=== PATIENT | male | born 1930 | race Caucasian/White ===

== ENCOUNTER 2016-08-21 11:03 | Inpatient (IN) | payer OTHER ==
[~2016-08-21] VITALS: Ht 180.3 cm; Wt 72.6 kg
[~2016-08-21 11:03] MED LIST: CLOP75TA2 PO; FLUD0.1T PO; FLUT1DIS3 IH; MIDO2.5T PO; TIOT18CA3 IH
--- NOTE | 2016-08-21 11:03 | NUR ---
PT HAS DAYAMI #20 IV ACCESS CUT OFF SAW SET UP OPERATOR
--- NOTE | 2016-08-21 11:03 | NUR ---
PT BIB RA 88 FROM HOME SYNCOPAL EPISODE SITTING ON CHAIR BP 65/42 HX HYPOTNSN. BLE EDEMA. BUE SKIN TEAR. GOWNED PT. PLACED ON MONITOR. VSS. AWAITING MD ORDER.
--- NOTE | 2016-08-21 11:29 | NUR ---
DR HAIRSTON AT BEDSIDE FOR EVAL
[2016-08-21 11:54] LABS: BASOPHILS % (AUTO) 0.7 % (0.0-2.0); EOSINOPHILS # (AUTO) 0.2 /CMM (0.0-0.7); EOSINOPHILS % (AUTO) 3.6 % (0.0-6.0); HEMATOCRIT 25 % (39-51); HEMOGLOBIN 7.7 g/dL (13.5-17.5); LYMPHOCYTES # (AUTO) 0.6 /CMM (0.8-4.8); LYMPHOCYTES % (AUTO) 11.1 % (20.0-44.0); MEAN CORPUSCULAR HEMOGLOBIN 21 PG (26.0-33.0); MEAN CORPUSCULAR HGB CONC 31 g/dl (31.0-36.0); MEAN CORPUSCULAR VOLUME 68 fL (80-96); MONOCYTES # (AUTO) 0.6 /CMM (0.1-1.30); MONOCYTES % (AUTO) 10.2 % (2.0-12.0); NEUTROPHILS # (AUTO) 4.4 /CMM (1.8-8.9); NEUTROPHILS % (AUTO) 74.4 % (43.0-81.0); PLATELET COUNT (AUTO) 306 /CMM (150-450); RDW COEFFICIENT OF VARIATION 16.1 (11.5-15.0); RED BLOOD CELL COUNT(AUTO) 3.62 MIL/uL (4.5-6.0); WHITE BLOOD COUNT (AUTO) 5.8 K/uL (4.3-11.0)
[2016-08-21] MEDS ORDERED: IV NS 0.9% 500 ML IV ONE (11:55)
[2016-08-21] MEDS ORDERED: IV SET PRIMARY PUMP SET 1 EA INFUS.SET MC ONE ×2 (11:55→15:12)
--- NOTE | 2016-08-21 11:57 | NUR ---
PT TAKEN TO CT VIA LINDA
[2016-08-21] MEDS ORDERED: IV NS 0.9% 500 ML BAG IV ONE (12:00)
[2016-08-21 12:09] LABS: ALANINE AMINOTRANSFERASE 16 U/L (12-78); ALBUMIN 2.8 g/dL (3.4-5.0); ALKALINE PHOSPHATASE 66 U/L (46-116); ASPARTATE AMINOTRANSFERASE 22 U/L (15-37); BILIRUBIN,DIRECT 0.1 mg/dL (0.0-0.2); BILIRUBIN,TOTAL 0.5 mg/dL (0.2-1.0); CALCIUM, SERUM 7.8 mg/dL (8.5-10.1); CARBON DIOXIDE 36 mmol/L (21-32); CHLORIDE 104 mmol/L (98-107); CREATININE 1.8 mg/dL (0.6-1.3); GLUCOSE 114 mg/dL (74-106); SODIUM SERUM 146 mmol/L (136-145); TOTAL PROTEIN, SERUM 5.6 g/dL (6.4-8.2); UREA NITROGEN, BLOOD 21 mg/dL (7-18)
[2016-08-21 12:11] LABS: TROPONIN I 0.036 ng/mL (0.00-0.056)
[2016-08-21 12:12] LABS: INR 1.25 (0.87-1.13); PROTHROMBIN TIME 13.1 SECS (9.5-12.7)
[2016-08-21] MEDS ORDERED: URSO300C12 PO (12:12)
[2016-08-21] MEDS ORDERED: LORA0.5T PO (12:12)
[2016-08-21] MEDS ORDERED: RASA1TAB PO (12:12)
[2016-08-21] MEDS ORDERED: DOCU-25 PO (12:12)
[2016-08-21] MEDS ORDERED: FURO40TA5 PO (12:12)
[2016-08-21] MEDS ORDERED: ZOLP5TAB7 PO (12:12)
[2016-08-21] MEDS ORDERED: PRAV10TA40 PO (12:12)
[2016-08-21] MEDS ORDERED: ALBU8.5H2 IH (12:12)
--- NOTE | 2016-08-21 12:16 | NUR ---
PT BACK FROM CT SCAN
[2016-08-21] MEDS ORDERED: POTASSIUM CHLORIDE 20 MEQ TAB.PRT.SR PO ONE ×4 (12:29→22:02)
--- NOTE | 2016-08-21 12:38 | NUR ---
DR.SHAO FRIEND
--- NOTE | 2016-08-21 12:40 | NUR ---
CALLED NURSING SUP. FOR TELE BED
--- NOTE | 2016-08-21 13:08 | NUR ---
RECEIVED CALL FROM 'S ANSWERING SERVICE, THEY SAID THAT HE IS NOT PILOT CAPTAIN AND TO GIVE IT TO THE EPIC GROUP.
--- NOTE | 2016-08-21 13:09 | NUR ---
CHITO NIELSEND, RHETT DOHERTY NP DECK MOLDER
--- NOTE | 2016-08-21 13:10 | NUR ---
PT GOING TO TELE 308-1
--- NOTE | 2016-08-21 13:15 | NUR ---
GAVE REPORT TO ALAINA OBRIENWHEAT INSPECTOR 308-1 ADMITTING DX SYNCOPE, HYPOKALEMIA, COPD. RHETT DOHERTY ADMITTING . TRANSFER VIA ACLS PROTOCOL
[2016-08-21] MEDS ORDERED: ACETAMINOPHEN 325 MG TABLET PO PRN (14:00)
[2016-08-21] MEDS ORDERED: MAGNESIUM HYDROXIDE 30 ML UDC PO PRN (14:00)
[2016-08-21] MEDS ORDERED: ONDANSETRON HCL/PF 4 MG/2 ML VIAL IVP PRN (14:00)
[2016-08-21] MEDS ORDERED: MAG HYDROX/AL HYDROX/SIMETH 30 ML UDC PO PRN (14:00)
[2016-08-21] MEDS ORDERED: Z GUARD REMEDY 2 OZ OINT TP PRN (14:00)
[2016-08-21 14:41] LABS: IRON, SERUM 14 ug/dl (50-175); TOTAL IRON BINDING CAPACITY 324 ug/dl (250-450)
[2016-08-21] MEDS ORDERED: IV NS 0.9% 250 ML IV ONE (15:12)
[2016-08-21] MEDS ORDERED: SECONDARY IV SET 1 EA INFUS.SET MC ONE ×2 (15:12→22:08)
[2016-08-21] MEDS: ALBUTEROL FS 2.5 MG/3 ML VIAL.NEB NEB PRN (15:15)
[2016-08-21] MEDS: POTASSIUM CL. PREMIX PERIPHER. 50 ML IV SCH ×2 (15:21→17:27)
[2016-08-21 15:32] LABS: B-TYPE NATRIURETIC PEPTIDE 6892 PG/ML (0-125)
--- NOTE | 2016-08-21 16:00 | NUR ---
PATIENT FELT SOB. RT NOTIFIED. BREATHING TREATMENT ADMINISTERED BY RT
[2016-08-21 16:40] LABS: FERRITIN 11 ng/mL (8-388)
--- NOTE | 2016-08-21 16:50 | NUR ---
RN ADMITTING NOTES RECEIVED REPORT FROM VICENTA OBRIEN. PATIENT CAME TO THE UNIT AT 1415. HIGH BLOOD PRESSURE NOTES, DR POE MADE AWARE AND NO NEW ORDERS RECEIVED. PATIENT AND PATIENT'S SON AGREED WITH DR POE NOT TO TREAT HIGH BLOOD PRESSURE FOR NOW. POTASSIUM SUPPLEMENT REPLACED WITH 2 BAGS OF IV AND 40 MEQ PO IN OUR UNIT IN ADDITION TO ER REPLACEMENT OF POTASSIUM. PICTURES WERE TAKEN AND PLACED IN THE CHART. WOUND CARE CONSULT ORDERED.
[2016-08-21] MEDS: FLUTICASONE/SALMETEROL DISKUS IH SCH (16:52)
[2016-08-21] MEDS: URSODIOL 300 MG CAPSULE PO SCH (16:52)
[2016-08-21] MEDS: DOCUSATE SODIUM 100 MG CAPSULE PO SCH (16:52)
[2016-08-21] MEDS: FLUDROCORTISONE 0.1 MG TABLET PO SCH (16:53)
[2016-08-21] MEDS ORDERED: POTASSIUM CHLORIDE 20 MEQ POWDER PACKET PO ONE (17:00)
[2016-08-21] MEDS ORDERED: LORAZEPAM 0.5 MG TABLET PO PRN (17:00)
--- NOTE | 2016-08-21 18:46 | NUR ---
RN CLOSING NOTES PATIENT IS IN BED, ALERT AND ORIENTED TO NAME, PLACE AND TIME. BED IN LOW POSITION, LOCKED AND 2 SIDE RAILS ARE UP. PATIENT KEPT CLEAN AND DRY. DRESSING CHANGED. ALL NEEDS ANTICIPATED. NO SIGNS AND SYMPTOMS OF DISTRESS. DENIED PAIN. WILL ENDORSE TO COUNTER DISH CARRIER NURSE.
--- NOTE | 2016-08-21 19:05 | NUR ---
DRY ROLLER OPENING NOTES: RECEIVED PT IN BED AWAKE A/O X3. PT IS ON 2LPM VIA NC AND IS TOLERATING WELL. PT IS ON TELE AND IS SR 60S. CALL LIGHT WITHIN PT'S REACH. BED KEPT IN LOCKED, LOWEST POSITION, AND SIDE RAILS X 2 UP. PT HAS IV ON DAYAMI 18G AND IS PATENT AND INTACT. PT IS CURRENTLY RECEIVING POTASSIUM AT 25ML/HR. NO SIGNS OR SYMPTOMS OF DISTRESS NOTED AT THIS TIME. WILL CONTINUE TO MONITOR PT.
[2016-08-21 20:00] VITALS: BP_SYST 188; BP_SYST 195; BP_DIAS 91; BP_DIAS 92
[2016-08-21] MEDS: IPRATROPIUM NEB FS 0.5 MG/2.5 ML AMPUL.NEB NEB SCH (20:07)
[2016-08-21 20:31] LABS: MAGNESIUM 1.4 mg/dL (1.8-2.4)
--- NOTE | 2016-08-21 20:45 | NUR ---
FRAME TABLE OPERATOR NOTES: BLOOD PRESSURE WAS CHECKED 195/89 HR 73. MANUALLY, IT WAS 192/90 HR 71. PT REPORTED NO PAIN. PT IS IN NO S/S OF DISTRESS. WILL CONTINUE TO MONITOR.
--- NOTE | 2016-08-21 21:06 | NUR ---
PATTERN HAND NOTES: PAGED DR. HOWELL IN REGARDS TO INCREASED BLOOD PRESSURE. AWAITING FOR CALL BACK.
[2016-08-21] MEDS: ATORVASTATIN 10 MG TABLET PO SCH (21:30)
--- NOTE | 2016-08-21 21:44 | NUR ---
AUTOMOBILE SALESMAN NOTES: PAGED DR. HOWELL. AWAITING FOR PHONE CALL.
--- NOTE | 2016-08-21 21:50 | NUR ---
ONLINE MERCHANDISING MANAGER NOTES: SPOKE WITH DR. HOWELL. HE WAS INFORMED OF BP 195/89 HR 73, K 3.0 , AND MAG 1.4 ; DR ORDERED CLONIDINE 0.1MG PRN Q6HR FOR SYSTOLIC >160, K-DUR PO 40MEQ X 1, AND MAG 2GM IV X 1.
[2016-08-21] MEDS ORDERED: ZOLPIDEM TARTRATE 5 MG TABLET PO PRN (22:00)
[2016-08-21] MEDS ORDERED: CLONIDINE HCL 0.1 MG TABLET ONE (22:02)
[2016-08-21] MEDS ORDERED: Magnesium 1GM/D5W 100ML PREMIX 200 ML IV ONE (22:03)
[2016-08-21] MEDS: CLONIDINE HCL 0.1 MG TABLET PO PRN (22:08)
--- NOTE | 2016-08-21 22:08 | NUR ---
BIAS CUTTER NOTES: ADMINISTERED CLONIDINE 0.1MG PO FOR BP 195/89 HR 73. ALSO ADMINISTERED K-DUR PO 40MEQ ONCE AND MAG 2GM IV ONCE PER DR. HOWELL. WILL CONTINUE TO MONITOR PT.
[2016-08-21] MEDS ORDERED: Magnesium 1GM/D5W 100ML PREMIX PIGGYBACK IV ONE (22:30)
[2016-08-22] VITALS: BP_SYST 166; BP_SYST 178; BP_DIAS 76; BP_DIAS 78
--- NOTE | 2016-08-22 | NUR ---
PUBLIC RECORDS OFFICER NOTES: BLOOD PRESSURE IS GOING DOWN: 166/76 HR 61 ; WILL CONTINUE TO MONITOR PT.
[2016-08-22] MEDS: IPRATROPIUM NEB FS 0.5 MG/2.5 ML AMPUL.NEB NEB SCH ×4 (01:15→19:10)
[2016-08-22 04:00] VITALS: BP 163/80
[2016-08-22 06:58] LABS: BASOPHILS % (AUTO) 0.1 % (0.0-2.0); EOSINOPHILS # (AUTO) 0.3 /CMM (0.0-0.7); EOSINOPHILS % (AUTO) 5.1 % (0.0-6.0); HEMATOCRIT 26 % (39-51); LYMPHOCYTES # (AUTO) 0.9 /CMM (0.8-4.8); LYMPHOCYTES % (AUTO) 13.1 % (20.0-44.0); MEAN CORPUSCULAR HEMOGLOBIN 22 PG (26.0-33.0); MEAN CORPUSCULAR HGB CONC 32 g/dl (31.0-36.0); MEAN CORPUSCULAR VOLUME 69 fL (80-96); MONOCYTES # (AUTO) 0.7 /CMM (0.1-1.30); MONOCYTES % (AUTO) 9.9 % (2.0-12.0); NEUTROPHILS # (AUTO) 4.7 /CMM (1.8-8.9); NEUTROPHILS % (AUTO) 71.8 % (43.0-81.0); PLATELET COUNT (AUTO) 269 /CMM (150-450); RDW COEFFICIENT OF VARIATION 16.8 (11.5-15.0); RED BLOOD CELL COUNT(AUTO) 3.72 MIL/uL (4.5-6.0); WHITE BLOOD COUNT (AUTO) 6.6 K/uL (4.3-11.0)
--- NOTE | 2016-08-22 07:05 | NUR ---
TELE CLOSING NOTES: ALL NEEDS WERE ATTENDED AND ANTICIPATED FOR. NO SIGNS OR SYMPTOMS OF DISTRESS NOTED AT THIS TIME. PT HAS IV ON L UPPER ARM 18G AND IS PATENT AND INTACT. PT IS ON HEP LOCK. TELE READING IS SR 70S. PT IS ON 2LPM VIA NC AND IS TOLERATING WELL. ENDORSED TO AM NURSE FOR BRAXTON.
[2016-08-22 07:23] VITALS: BP 170/90
--- NOTE | 2016-08-22 07:30 | NUR ---
TELE/RN NOTES PT. IS SLEEPING IN BED. NO SOB, PT. IS BREATHING ON OXYGEN AT 2L/MIN WITH NASAL CANNULA. BREATHING IS EVEN AND UNLABORED. NO S/S OF ACUTE DISTRESS. PT. IS ON TELE MONITOR WITH SINUS RHYTHM AT 86 BPM. IV ACCESS ON THE LEFT ANTECUBITAL SITE GAUGE 18. BED IS IN LOW POSITION, 2 SIDE RAILS UP, AND CALL LIGHT WITHIN REACH. INSTRUCTED PT. TO USE CALL LIGHT FOR ASSISTANCE.
[2016-08-22 07:52] LABS: CHOLESTEROL 106 mg/dL (<200); HDL CHOLESTEROL 47 mg/dL (40-60); LDL 41 mg/dL (0-99); TRIGLYCERIDES 26 mg/dL (30-150)
[2016-08-22 08:04] LABS: EOSINOPHILS % (MANUAL) 1 % (0-4); LYMPHOCYTES % (MANUAL) 14 % (16-48); MONOCYTES % (MANUAL) 8 % (0-11.0); NEUTROPHILS % (MANUAL) 77 (42-76)
[2016-08-22 08:07] LABS: ALANINE AMINOTRANSFERASE 17 U/L (12-78); ALBUMIN 2.5 g/dL (3.4-5.0); ALKALINE PHOSPHATASE 66 U/L (46-116); ASPARTATE AMINOTRANSFERASE 24 U/L (15-37); BILIRUBIN,TOTAL 0.4 mg/dL (0.2-1.0); CALCIUM, SERUM 7.8 mg/dL (8.5-10.1); CARBON DIOXIDE 37 mmol/L (21-32); CHLORIDE 103 mmol/L (98-107); CREATININE 1.3 mg/dL (0.6-1.3); GLUCOSE 93 mg/dL (74-106); MAGNESIUM 1.8 mg/dL (1.8-2.4); PHOSPHORUS 3.4 mg/dL (2.5-4.9); SODIUM SERUM 144 mmol/L (136-145); TOTAL PROTEIN, SERUM 5.2 g/dL (6.4-8.2); UREA NITROGEN, BLOOD 18 mg/dL (7-18)
[2016-08-22 08:40] LABS: POTASSIUM 2.5 mmol/L (3.5-5.1)
[2016-08-22] MEDS ORDERED: FUROSEMIDE 40 MG TABLET PO SCH (09:00)
[2016-08-22] MEDS ORDERED: POTASSIUM CL. PREMIX PERIPHER. 50 ML IV SCH (09:30)
[2016-08-22] MEDS ORDERED: SECONDARY IV SET 1 EA INFUS.SET MC ONE (11:50)
[2016-08-22] MEDS: PANTOPRAZOLE 40 MG TABLET.DR PO SCH (11:56)
[2016-08-22] MEDS: FUROSEMIDE 40 MG TABLET PO SCH (11:56)
[2016-08-22] MEDS: FLUDROCORTISONE 0.1 MG TABLET PO SCH ×2 (11:56→18:03)
[2016-08-22] MEDS: DOCUSATE SODIUM 100 MG CAPSULE PO SCH ×2 (11:56→18:02)
[2016-08-22] MEDS: URSODIOL 300 MG CAPSULE PO SCH ×2 (11:56→18:03)
[2016-08-22] MEDS: FLUTICASONE/SALMETEROL DISKUS IH SCH ×2 (11:57→18:03)
[2016-08-22] MEDS: CLOPIDOGREL BISULFATE 75 MG TABLET PO SCH (11:57)
[2016-08-22] MEDS: CLONIDINE HCL 0.1 MG TABLET PO PRN ×2 (11:58→20:21)
[2016-08-22 12:00] VITALS: BP 174/79
[2016-08-22] MEDS: POTASSIUM CHLORIDE 20 MEQ TAB.PRT.SR PO SCH ×3 (12:46→15:38)
[2016-08-22 16:00] VITALS: BP 148/80
[2016-08-22 17:08] LABS: APPEARANCE,URINE CLEAR (CLEAR); BILIRUBIN,URINE NEGATIVE (NEGATIVE); BLOOD, URINE NEGATIVE Ery/uL (NEGATIVE); COLOR,URINE YELLOW (YELLOW); KETONES,URINE NEGATIVE (NEGATIVE); LEUKOCYTE ESTERASE ,URINE NEGATIVE (NEGATIVE); NITRITE, URINE NEGATIVE (NEGATIVE); PROTEIN,URINE 2+ mg/dl (NEGATIVE); UGLUCOSE NEGATIVE (NEGATIVE)
[2016-08-22 17:16] LABS: BACTERIA,URINE None seen /HPF (None Seen); RBC,URINE NONE SEEN /HPF (0-2); SQUAMOUS EPITHELIAL CELL,UR Rare /HPF (None Seen); WBC,URINE 0-2 /HPF (0-3)
[2016-08-22] MEDS: FERROUS SULFATE (325 MG) 325 MG/TAB TABLET PO SCH (18:03)
--- NOTE | 2016-08-22 19:30 | NUR ---
MACHINIST MATE OPENING NOTES: RECEIVED PT IN BED WITH FAMILY MEMBERS AT BEDSIDE. PT IS AWAKE, A/O X4. PT IS ON 2LPM VIA NC AND IS TOLERATING WELL. PT IS ON TELE AND IS SR 70S. CALL LIGHT WITHIN PT'S REACH. BED KEPT IN LOCKED, LOWEST POSITION, AND SIDE RAILS X 2 UP. PT KEPT COMFORTABLE. PT HAS L UPPER ARM #18G AND IS PATENT AND INTACT. WILL CONTINUE TO MONITOR PT.
--- NOTE | 2016-08-22 19:56 | NUR ---
TELE/RN CLOSING NOTES PT. IS IN BED AWAKE, A&OX3. NO SOB, BREATHING EVENLY AND UNLABORED ON OXYGEN AT 2L/MIN WEARING NASAL CANNULA. NO S/S OF ACUTE DISTRESS. PT IS ON TELE MONITOR READING SINUS RHYTHM IN THE 70'S BPM. BED IS IN LOW POSITION, 2 SIDE RAILS UP, CALL LIGHT WITHIN REACH, AND INSTRUCTED PT. TO USE A CALL LIGHT FOR ASSISTANCE.
[2016-08-22 20:00] VITALS: BP 192/99
--- NOTE | 2016-08-22 20:21 | NUR ---
GALVANIZING POT RUNNER NOTES: CATAPRES WAS GIVEN PO D/T BP 192/99 HR 66 . PT REPORTS NO PAIN. WILL CONTINUE TO MONITOR PT.
[2016-08-22] MEDS: ATORVASTATIN 10 MG TABLET PO SCH (21:02)
[2016-08-23] VITALS: BP 175/77
[2016-08-23] MEDS: IPRATROPIUM NEB FS 0.5 MG/2.5 ML AMPUL.NEB NEB SCH ×4 (01:07→20:09)
[2016-08-23 04:00] VITALS: BP 189/93
[2016-08-23 06:34] LABS: CALCIUM, SERUM 7.8 mg/dL (8.5-10.1); CARBON DIOXIDE 36 mmol/L (21-32); CHLORIDE 105 mmol/L (98-107); CREATININE 1.4 mg/dL (0.6-1.3); GLUCOSE 94 mg/dL (74-106); MAGNESIUM 1.8 mg/dL (1.8-2.4); SODIUM SERUM 145 mmol/L (136-145); UREA NITROGEN, BLOOD 20 mg/dL (7-18)
[2016-08-23 06:41] LABS: BASOPHILS % (AUTO) 0.3 % (0.0-2.0); EOSINOPHILS # (AUTO) 0.5 /CMM (0.0-0.7); EOSINOPHILS % (AUTO) 6.1 % (0.0-6.0); HEMATOCRIT 27 % (39-51); HEMOGLOBIN 8.5 g/dL (13.5-17.5); LYMPHOCYTES # (AUTO) 0.7 /CMM (0.8-4.8); LYMPHOCYTES % (AUTO) 8.9 % (20.0-44.0); MEAN CORPUSCULAR HEMOGLOBIN 22 PG (26.0-33.0); MEAN CORPUSCULAR HGB CONC 32 g/dl (31.0-36.0); MEAN CORPUSCULAR VOLUME 69 fL (80-96); MONOCYTES # (AUTO) 0.7 /CMM (0.1-1.30); MONOCYTES % (AUTO) 9.5 % (2.0-12.0); NEUTROPHILS # (AUTO) 5.9 /CMM (1.8-8.9); NEUTROPHILS % (AUTO) 75.2 % (43.0-81.0); PLATELET COUNT (AUTO) 281 /CMM (150-450); RDW COEFFICIENT OF VARIATION 16.9 (11.5-15.0); RED BLOOD CELL COUNT(AUTO) 3.88 MIL/uL (4.5-6.0); WHITE BLOOD COUNT (AUTO) 7.9 K/uL (4.3-11.0)
[2016-08-23 06:55] VITALS: BP 167/87
[2016-08-23 07:10] LABS: POTASSIUM 2.5 mmol/L (3.5-5.1)
--- NOTE | 2016-08-23 07:15 | NUR ---
TELE CLOSING NOTES: ALL NEEDS WERE ATTENDED AND ANTICIPATED FOR. NO SIGNS OR SYMPTOMS OF DISTRESS NOTED AT THIS TIME. PT IS ASLEEP IN BED. PT HAS IV ON L UPPER ARM 18G AND IS PATENT AND INTACT. PT IS ON HEP LOCK. TELE READING IS SR 60S-70S. PT IS ON 2LPM VIA NC AND IS TOLERATING WELL. RECEIVED PHONE CALL ABOUT CRITICAL VALUE FOR LOW POTASSIUM. ENDORSED TO AM NURSE FOR BRAXTON.
--- NOTE | 2016-08-23 07:49 | NUR ---
TELE/NOTES OPENING NOTES PT. IS IN BED SLEEPING. NO SOB, BREATHING UNLABORED AND EVENLY ON OXYGEN AT 2L/MIN. NO S/S OF ACUTE DISTRESS. PT. IS ON TELE MONITOR READING SINUS RHYTHM IN THE 60'S . BED IS IN LOW POSITION, 2 SIDE RAILS UP, CALL LIGHT WITHIN REACH. PER STATE HISTORICAL SOCIETY DIRECTOR NURSE PT.'S HAS CRITICAL LAB VALUE, POTASSIUM 2.5, WILL NOTIFY
--- NOTE | 2016-08-23 07:52 | NUR ---
TELE/RN NOTES CALLED [facility] TO NOTIFY RHETT DOHERTY NP ABOUT PT.'S CRITICAL LAB VALUE POTASSIUM 2.5. TILE MACHINE OPERATOR IS AWARE, AND ASKED TO TALK TO PT. ABOUT RECEIVING POTASSIUM IV.
[2016-08-23] MEDS: ALBUTEROL FS 2.5 MG/3 ML VIAL.NEB NEB PRN ×2 (07:53→13:18)
[2016-08-23] MEDS: FLUDROCORTISONE 0.1 MG TABLET PO SCH ×2 (08:54→18:07)
[2016-08-23] MEDS: DOCUSATE SODIUM 100 MG CAPSULE PO SCH ×2 (08:54→18:07)
[2016-08-23] MEDS: FERROUS SULFATE (325 MG) 325 MG/TAB TABLET PO SCH ×2 (08:54→18:07)
[2016-08-23] MEDS: CLOPIDOGREL BISULFATE 75 MG TABLET PO SCH (08:54)
--- NOTE | 2016-08-23 08:59 | NUR ---
MS/RN NOTES PT. WAS DISCHARGED FROM TELE MONITOR PER MD ORDER.
[2016-08-23] MEDS: FLUTICASONE/SALMETEROL DISKUS IH SCH ×2 (09:00→18:06)
[2016-08-23] MEDS: CLONIDINE HCL 0.1 MG TABLET PO PRN ×3 (09:05→16:09)
[2016-08-23] MEDS: PANTOPRAZOLE 40 MG TABLET.DR PO SCH (09:08)
[2016-08-23] MEDS: URSODIOL 300 MG CAPSULE PO SCH ×2 (09:21→18:07)
[2016-08-23] MEDS: FUROSEMIDE 40 MG TABLET PO SCH (09:22)
--- NOTE | 2016-08-23 09:33 | NUR ---
WOUND CARE CONSULT: PT PRESENT WITH ABRASION TO LEFT LOWER BACK AND RT ARM SKIN TEARS, PRESENT ON ADMISSION. PT ABLE TO ASSIST WITH TURNING AND REPOSITIONING IN BED. PT IS CONTINENT. ALL SKIN AND WOUND RECOMMENDATIONS DISCUSSED WITH NURSING STAFF. WILL SEE PRN. BECKWITH IN AGREEMENT WITH PLAN OF CARE. Addendum: 08/23/16 at 0934 by MARITZA BENDER WNDNU Amended: Links added.
[2016-08-23 09:47] LABS: BAND % (MANUAL) 2 % (0.0-5.0); EOSINOPHILS % (MANUAL) 9 % (0-4); LYMPHOCYTES % (MANUAL) 7 % (16-48); MONOCYTES % (MANUAL) 7 % (0-11.0); NEUTROPHILS % (MANUAL) 75 (42-76)
--- NOTE | 2016-08-23 11:00 | NUR ---
MS/RN NOTES RIGHT ARM DRESSING WAS CHANGED, WOUNDS CLEANSED WITH NORMAL SALINE, FLEXI FOAM DRESSING APPLIED TO SKIN WOUNDS, NO BLEEDING NOTES, AND REINFORCED DRESSING WITH KRELIX DRESSING. PT. HAS SKIN REDNESS FROM SCRATCH APPLIED MEPILEX TO BACK PER [facility] WOUND CARE NURSE RECOMMENDATIONS.
[2016-08-23] MEDS ORDERED: POTASSIUM CL. PREMIX PERIPHER. 50 ML IV SCH (13:00)
[2016-08-23] MEDS ORDERED: POTASSIUM CHLORIDE 20 MEQ POWDER PACKET PO ONE (13:00)
[2016-08-23] MEDS ORDERED: Magnesium 1GM/D5W 100ML PREMIX 100 ML IV SCH (13:00)
[2016-08-23] MEDS ORDERED: IV SET PRIMARY PUMP SET 1 EA INFUS.SET MC ONE ×2 (14:05→14:30)
[2016-08-23] MEDS ORDERED: SECONDARY IV SET 1 EA INFUS.SET MC ONE ×3 (14:05→19:14)
[2016-08-23] MEDS ORDERED: IV NS 0.9% 250 ML IV ONE ×2 (14:31→20:40)
[2016-08-23 16:00] VITALS: BP 165/86
--- NOTE | 2016-08-23 19:30 | NUR ---
MS/ RN NOTES PT. IS IN BED A&OX3. NO SOB, BREATHING ON OXYGEN 2L/MIN. NO S/S OF ACUTE DISTRESS. HAS IV FLUIDS RUNNING AT 100 ML/HR. PT. HAS WALKER NEAR BEDSIDE TO USE FOR AMBULATION. PT. IS CONTINENT AND USES A URINAL OCCASIONALLY. BED IS IN LOW POSITION, 2 SIDE RAILS UP, CALL LIGHT WITHIN REACH, AND ALL NEEDS MET. WILL ENDORSE REPORT TO MIGHT SHIFT NURSE.
[2016-08-23 20:00] VITALS: BP 178/86
--- NOTE | 2016-08-23 20:00 | NUR ---
MS KAMERON INITIAL NOTES GOT REPORT FROM AM NURSE EDDIE AFTER SEEN THE PT IN HIS ROOM , HE'S AWAKE AND ALERT USING THE TELEPHONE WITH MAGNESIUM STILL INFUSING ON HIS UPPER LEFT ARM. NO REDNESS NOTED. PT DENIES ANY PAIN OR ANY DISCOMFORT, NO SOB NOTED AT THIS TIME. PER REPORT PT RIGHT ARM WITH SKIN TEAR COVERED WITH DRESSING DRY AND INTACT . EDEMA NOTED ON BLE . KEPT HIM WARM AND COMFORTABLE AT ALL TIMES. ENCOURAGED PT TO CALL USING HIS CALL LIGHT IF HE NEED SOME HELPED OR ASSISTANCE. WILL CONTINUE TO MONITOR. PLACE CALL LIGHT AT REACH.
[2016-08-23] MEDS: Potassium Chloride 10 MEQ, LIDOCAINE HCL/PF 1% 1 ML in IV D5W 50 ML IV SCH ×3 (20:58→23:11)
[2016-08-23] MEDS: ATORVASTATIN 10 MG TABLET PO SCH (22:15)
[2016-08-24] VITALS: BP 154/82
[2016-08-24] MEDS: Potassium Chloride 10 MEQ, LIDOCAINE HCL/PF 1% 1 ML in IV D5W 50 ML IV SCH (00:15)
--- NOTE | 2016-08-24 01:09 | NUR ---
TECHNICAL TRANSLATOR/NOTES PT REMAIN SLEEPING . ALL POTASSIUM IVP BAG GIVEN ORDERED. NO ADVERSE REACTION NOTED. WILL CONTINUE TO MONITOR. PLACE CALL LIGHT AT REACH.
[2016-08-24] MEDS: IPRATROPIUM NEB FS 0.5 MG/2.5 ML AMPUL.NEB NEB SCH ×3 (01:30→13:48)
[2016-08-24 07:00] LABS: BASOPHILS % (AUTO) 0.1 % (0.0-2.0); EOSINOPHILS # (AUTO) 0.6 /CMM (0.0-0.7); EOSINOPHILS % (AUTO) 6.9 % (0.0-6.0); HEMATOCRIT 28 % (39-51); HEMOGLOBIN 8.9 g/dL (13.5-17.5); LYMPHOCYTES # (AUTO) 0.9 /CMM (0.8-4.8); LYMPHOCYTES % (AUTO) 10.3 % (20.0-44.0); MEAN CORPUSCULAR HEMOGLOBIN 22 PG (26.0-33.0); MEAN CORPUSCULAR HGB CONC 32 g/dl (31.0-36.0); MEAN CORPUSCULAR VOLUME 69 fL (80-96); MONOCYTES # (AUTO) 0.7 /CMM (0.1-1.30); MONOCYTES % (AUTO) 7.8 % (2.0-12.0); NEUTROPHILS # (AUTO) 6.4 /CMM (1.8-8.9); NEUTROPHILS % (AUTO) 74.9 % (43.0-81.0); PLATELET COUNT (AUTO) 290 /CMM (150-450); RDW COEFFICIENT OF VARIATION 16.8 (11.5-15.0); RED BLOOD CELL COUNT(AUTO) 4.12 MIL/uL (4.5-6.0); WHITE BLOOD COUNT (AUTO) 8.5 K/uL (4.3-11.0)
[2016-08-24 07:22] LABS: CARBON DIOXIDE 34 mmol/L (21-32); CHLORIDE 105 mmol/L (98-107); CREATININE 1.2 mg/dL (0.6-1.3); GLUCOSE 95 mg/dL (74-106); POTASSIUM 2.9 mmol/L (3.5-5.1); SODIUM SERUM 144 mmol/L (136-145); UREA NITROGEN, BLOOD 21 mg/dL (7-18)
--- NOTE | 2016-08-24 07:30 | NUR ---
RECEIVED PT. IN AM ALERT AND ORIENTED X2-3.VS STABLE.
[2016-08-24] MEDS: ALBUTEROL FS 2.5 MG/3 ML VIAL.NEB NEB PRN ×2 (07:55→13:48)
[2016-08-24 08:00] VITALS: BP 188/88
--- NOTE | 2016-08-24 08:06 | NUR ---
MS DISHROOM ATTENDANT CLOSING NOTES PT RESTING AT THIS TIME , NO SIGNS OF ANY DISCOMFORT NOTED, ALL DUE MEDS MET. AND STABLE GEMINI THE NIGHT. HEPLOCK AT THIS TIME. KEPT HIM WARM AND COMFORTABLE AT ALL TIMES. PLACE CALL LIGHT AT REACH.
[2016-08-24 08:26] LABS: EOSINOPHILS % (MANUAL) 6 % (0-4); LYMPHOCYTES % (MANUAL) 7 % (16-48); MONOCYTES % (MANUAL) 8 % (0-11.0); NEUTROPHILS % (MANUAL) 79 (42-76)
[2016-08-24] MEDS: FLUDROCORTISONE 0.1 MG TABLET PO SCH (09:25)
[2016-08-24] MEDS: PANTOPRAZOLE 40 MG TABLET.DR PO SCH (09:26)
[2016-08-24] MEDS: CLOPIDOGREL BISULFATE 75 MG TABLET PO SCH (09:26)
[2016-08-24] MEDS: CLONIDINE HCL 0.1 MG TABLET PO PRN (09:26)
[2016-08-24] MEDS: DOCUSATE SODIUM 100 MG CAPSULE PO SCH (09:26)
[2016-08-24] MEDS: FERROUS SULFATE (325 MG) 325 MG/TAB TABLET PO SCH (09:26)
[2016-08-24] MEDS: URSODIOL 300 MG CAPSULE PO SCH (09:26)
[2016-08-24] MEDS: FLUTICASONE/SALMETEROL DISKUS IH SCH (09:27)
--- NOTE | 2016-08-24 12:00 | NUR ---
KDUR GIVEN FOR CONTINUED LOW POTASSIUM.
[2016-08-24] MEDS: POTASSIUM CHLORIDE 20 MEQ TAB.PRT.SR PO SCH ×3 (12:27→15:00)
[2016-08-24 15:00] VITALS: BP 134/67
--- NOTE | 2016-08-24 15:45 | NUR ---
SON HERE FOR DC,GIVEN ALL PAPERWORK ALONG WITH BELONGINGS.HEP LOCK OUT.TAKEN TO LOBBY VIA W/C FOR DISCHARGE.
--- NOTE | 2016-08-24 15:46 | NUR ---
PHOTOS DONE OF DYANA. ARMS,REFUSED PHOTO OF BACK PT. ALREADY DRESSED.RT. ARM SKIN TEARS REDRESSED WITH IODOFORM AND KERLIX.
== END 2016-08-24 15:45 | disposition home or self-care (01) | DRG 291 ==
LOC: ER 11:05 → TELE 13:35 → MED 08-23 09:00
PROVIDERS: ADMIT Nurse Practitioner Acute Care; ATTEND Nurse Practitioner Acute Care
DX: I13.0 Hypertensive heart and chronic kidney disease with heart failure and stage 1 through stage 4 chronic kidney disease, or unspecified chronic kidney disease (principal); I50.33 Acute on chronic diastolic (congestive) heart failure; N17.0 Acute kidney failure with tubular necrosis; E44.0 Moderate protein-calorie malnutrition; I95.1 Orthostatic hypotension; N18.9 Chronic kidney disease, unspecified; J44.9 Chronic obstructive pulmonary disease, unspecified; D50.9 Iron deficiency anemia, unspecified; G47.00 Insomnia, unspecified; Z86.73 Personal history of transient ischemic attack (TIA), and cerebral infarction without residual deficits; E87.6 Hypokalemia; E88.09 Other disorders of plasma-protein metabolism, not elsewhere classified; Z68.22 Body mass index [BMI] 22.0-22.9, adult; Z87.891 Personal history of nicotine dependence
CPT/HCPCS: 36415; 70450-TC; 71010-TC; 80048-TC; 80051-TC; 80053-TC; 80061-TC; 80076-TC; 81000-TC; 82728-TC; 82962-TC; 83540-TC; 83735-TC; 83880; 84100-TC; 84132-TC; 84443-TC; 84484-TC; 85025-TC; 85027-TC; 85730-TC; 86850-TC; 87081-TC; 87086-TC; 93307-TC; 94799-TC; 97001-TC; A4606; A6253; A6402; A6403; J3475; J3480; J3490; J7040; J7050; J7060; Z7610

== ENCOUNTER 2017-09-12 16:39 | Inpatient (IN) | payer MEDICARE, OTHER ==
[~2017-09-12] VITALS: Ht 172.7 cm; Wt 68.0 kg
[~2017-09-12 16:39] MED LIST changes: +ALBU8.5H8 IH; +CLOP75TA15 PO; -CLOP75TA2 PO; +DOCU-141 PO; +LORA0.5T PO; -MIDO2.5T PO; +PRAV10TA40 PO; +RASA1TAB PO; +URSO300C12 PO; +ZOLP5TAB8 PO
--- NOTE | 2017-09-12 16:40 | NUR ---
BB FAMILY MEMBERS FOR NEAR SYNCOPE. NOT ACTING RIGHT/CONFUSED. LAST TIME SEEN NORMAL 3 HRS AGO. ACCDG TO THE SON, THE LAST TIME HE WAS ACTING LIKE THIS WAS WHEN HE HAD TIA. GOWNED AND PLACED ON CONT CARDIAC AND POX MONITORING. ALL NEEDS ARE ATTENDED, KEPT COMFORTABLE. WILL CONT TO MONITOR
--- NOTE | 2017-09-12 16:55 | NUR ---
DR. NARVAEZ AT BEDSIDE FOR EVALUATION.
[2017-09-12 17:23] LABS: BASOPHILS # (AUTO) 0.2 /CMM (0.0-0.2); BASOPHILS % (AUTO) 2.6 % (0.0-2.0); EOSINOPHILS % (AUTO) 3.9 % (0.0-6.0); HEMATOCRIT 38 % (39-51); HEMOGLOBIN 13.1 g/dL (13.5-17.5); LYMPHOCYTES # (AUTO) 1.1 /CMM (0.8-4.8); LYMPHOCYTES % (AUTO) 11.8 % (20.0-44.0); MEAN CORPUSCULAR HEMOGLOBIN 29 PG (26.0-33.0); MEAN CORPUSCULAR HGB CONC 34 g/dl (31.0-36.0); MEAN CORPUSCULAR VOLUME 86 fL (80-96); MONOCYTES # (AUTO) 0.5 /CMM (0.1-1.30); MONOCYTES % (AUTO) 5.3 % (2.0-12.0); NEUTROPHILS # (AUTO) 6.9 /CMM (1.8-8.9); NEUTROPHILS % (AUTO) 76.4 % (43.0-81.0); PLATELET COUNT (AUTO) 230 /CMM (150-450); RDW COEFFICIENT OF VARIATION 13.8 (11.5-15.0); RED BLOOD CELL COUNT(AUTO) 4.47 MIL/uL (4.5-6.0); WHITE BLOOD COUNT (AUTO) 9.1 K/uL (4.3-11.0)
[2017-09-12] MEDS ORDERED: IV NS 0.9% 500 ML BAG IV ONE (17:30)
[2017-09-12 17:34] LABS: CALCIUM, SERUM 8.7 mg/dL (8.5-10.1); CARBON DIOXIDE 28 mmol/L (21-32); CHLORIDE 103 mmol/L (98-107); CREATININE 1.6 mg/dL (0.6-1.3); GLUCOSE 133 mg/dL (74-106); SODIUM SERUM 135 mmol/L (136-145); UREA NITROGEN, BLOOD 26 mg/dL (7-18)
[2017-09-12 17:37] LABS: INR 1.04 (0.85-1.15)
[2017-09-12 17:39] LABS: ALANINE AMINOTRANSFERASE 27 U/L (12-78); ALBUMIN 3.5 g/dL (3.4-5.0); ALKALINE PHOSPHATASE 80 U/L (46-116); ASPARTATE AMINOTRANSFERASE 22 U/L (15-37); BILIRUBIN,DIRECT 0.1 mg/dL (0.0-0.2); BILIRUBIN,TOTAL 0.5 mg/dL (0.2-1.0); TOTAL PROTEIN, SERUM 6.9 g/dL (6.4-8.2)
[2017-09-12 17:42] LABS: TROPONIN I < 0.017 ng/mL (0.00-0.056)
[2017-09-12] MEDS ORDERED: POTASSIUM CHLORIDE 20 MEQ TAB.PRT.SR PO ONE ×2 (18:00→18:33)
[2017-09-12] MEDS ORDERED: Magnesium 1GM/D5W 100ML PREMIX 200 ML IV ONE (18:34)
[2017-09-12 18:58] LABS: APPEARANCE,URINE Clear (CLEAR); BILIRUBIN,URINE Negative (NEGATIVE); BLOOD, URINE Negative Ery/uL (NEGATIVE); COLOR,URINE Yellow (YELLOW); KETONES,URINE Negative (NEGATIVE); LEUKOCYTE ESTERASE ,URINE Negative (NEGATIVE); NITRITE, URINE Negative (NEGATIVE); PH,URINE 7.5 (5.0-8.0); PROTEIN,URINE 30 mg/dl (NEGATIVE); UGLUCOSE Negative (NEGATIVE); UROBILINOGEN,URINE 0.2 EU/dL (0.2)
[2017-09-12] MEDS: Magnesium 1GM/D5W 100ML PREMIX 100 ML IV SCH ×2 (18:58→20:00)
[2017-09-12] MEDS ORDERED: FURO40TA5 PO (19:07)
[2017-09-12] MEDS ORDERED: MAGN400T6 PO (19:07)
[2017-09-12] MEDS ORDERED: PRAV40TA3 PO (19:07)
[2017-09-12] MEDS ORDERED: POTA20TA83 PO (19:07)
--- NOTE | 2017-09-12 19:10 | NUR ---
DR NARVAEZ MADE AWARE OF BLOOD PRESSURE. NO NEW ORDERS AT THIS TIME.
[2017-09-12 19:27] LABS: BACTERIA,URINE Rare /HPF (None Seen); MUCUS,URINE Few /LPF (None Seen); RBC,URINE 0-2 /HPF (0-2); SQUAMOUS EPITHELIAL CELL,UR Rare /HPF (None Seen); URINE AMORPHOUS URATE Few /HPF (None Seen); WBC,URINE 0-2 /HPF (0-3)
--- NOTE | 2017-09-12 21:00 | NUR ---
MAGNISIUM 2GM ADMINISTERED. SON 20G. END TIME 2099.
--- NOTE | 2017-09-12 21:50 | NUR ---
RECEIVED CALL FROM AIYANA WITH [facility], SHE SAID SHE IS GOING TO TRY TO TRANSFER PT TO [facility], [facility], OR [facility] AND TO FAX HER FACESHEET AND CLINICALS TO [phone]
--- NOTE | 2017-09-12 23:06 | NUR ---
AIYANA VOLLEYBALL ASSEMBLER REGAL [phone]
--- NOTE | 2017-09-12 23:16 | NUR ---
SPOKE TO AIYANA/CONCRETE ENGINEER AND STATES "WE WAITING FOR DR. LOPEZ TO CALL YOUR ER DOCTOR AND AWAITING A TELE BED [facility] [place] [facility]".
--- NOTE | 2017-09-12 23:56 | NUR ---
REPORT TO CHARGE NURSE ECHEVARRIA FOR BRAXTON.
[2017-09-13] VITALS (7 sets, daily range): BP systolic 78–209; BP diastolic 32–96
--- NOTE | 2017-09-13 00:16 | NUR ---
DR. BENITEZ AT BEDSIDE.
--- NOTE | 2017-09-13 00:24 | NUR ---
AUTH NUMBER RECEIVED FROM CARD HAND AIYANA. [id number]
[2017-09-13] MEDS ORDERED: CLONIDINE HCL 0.1 MG TABLET ONE (00:28)
--- NOTE | 2017-09-13 00:29 | NUR ---
PT CAN GO TO ROOM 117.1
[2017-09-13] MEDS ORDERED: CLONIDINE HCL 0.1 MG TABLET PO ONE (00:30)
[2017-09-13] MEDS ORDERED: ENALAPRILAT INJ (1.25 MG/ML) 1.25 MG/ML VIAL IV PRN (00:30)
--- NOTE | 2017-09-13 01:21 | NUR ---
REPORT GIVEN TO SAM/KIMBER [facility].
--- NOTE | 2017-09-13 01:40 | NUR ---
TRANSPORTED TO [facility] IN STABLE CONDITION VIA ACLS PROTOCOL.
--- NOTE | 2017-09-13 01:45 | NUR ---
RN [facility] ADMISSION NOTES, RECEIVED 86 Y.O MALE FROM EMERGENCY ROOM VIA STRETCHER IN COMPANY OF 2 RNS IN STABLE CONDITION AT THIS TIME, UNDER MEDICAL SERVICES OF DR ALEXANDER, ADMITTING DX TIA, H/O CVA, COPD, HYPOTENSION, H/O VASECTOMY, LOWER BACK SX, ALERT AND ORIENTED X3, ABLE TO VERBALIZED NEEDS AND CONCERNS, NSR IN ON TELE MONITOR, NO SLURRED SPEECH NOTED, ABLE TO SWALLOW W/O DIFFICULTY NO COUGHING NOTED AFTER SWALLOW WATER, NO DROOPING NOTED, NO ARM DRIFT NOTED, BOTH ARMS NOTED EQUALLY STRONG AFTER AIR CONDITIONING MECHANIC ASSESSMENT, PERRLA AND EQUALLY ROUND UPON ASSESSMENT, BREATHING EVEN AND UNLABORED, NO S/S OF ACUTE DISTRESS OR SOB NOTED AT THIS TIME, ABDOMEN SOFT AND NON DISTENDED, WITH POSITIVE BOWEL SOUNDS, SKIN WARM, DRY, INTACT AND AFEBRILE AT THIS TIME, NOTED PITTING EDEMA IN BOTH LOWER EXTREMITIES, WILL ELEVATE TO DECREASE SWELLING, WILL CONTINUE TO MONITOR CLOSELY, CARE AND COMPLETE LINEN PROVIDED, ALL NEEDS ATTEMPTED AND RENDERED, CALL LIGHT W/I REACH, BED LOCKED AND IN LOWEST POSITION, WILL ADMINISTER MEDICATIONS ORDERED VS 163/84, 97.3, 18, 80, 97% RA, 0/10.
[2017-09-13] MEDS ORDERED: hydrALAZINE HCL IV 20 MG VIAL IV PRN (02:30)
[2017-09-13] MEDS ORDERED: BLOOD SUGAR DIAGNOSTIC 1 EACH STRIP IN SCH (06:00)
[2017-09-13 06:34] LABS: BASOPHILS % (AUTO) 0.1 % (0.0-2.0); EOSINOPHILS % (AUTO) 5.1 % (0.0-6.0); HEMATOCRIT 37 % (39-51); HEMOGLOBIN 12.3 g/dL (13.5-17.5); LYMPHOCYTES # (AUTO) 1.1 /CMM (0.8-4.8); LYMPHOCYTES % (AUTO) 13.1 % (20.0-44.0); MEAN CORPUSCULAR HEMOGLOBIN 30 PG (26.0-33.0); MEAN CORPUSCULAR HGB CONC 34 g/dl (31.0-36.0); MEAN CORPUSCULAR VOLUME 88 fL (80-96); MONOCYTES # (AUTO) 0.6 /CMM (0.1-1.30); NEUTROPHILS # (AUTO) 6.4 /CMM (1.8-8.9); NEUTROPHILS % (AUTO) 74.7 % (43.0-81.0); PLATELET COUNT (AUTO) 243 /CMM (150-450); RDW COEFFICIENT OF VARIATION 14.6 (11.5-15.0); RED BLOOD CELL COUNT(AUTO) 4.14 MIL/uL (4.5-6.0); WHITE BLOOD COUNT (AUTO) 8.5 K/uL (4.3-11.0)
[2017-09-13 06:41] LABS: CALCIUM, SERUM 8.3 mg/dL (8.5-10.1); CARBON DIOXIDE 27 mmol/L (21-32); CHLORIDE 108 mmol/L (98-107); CREATININE 1.4 mg/dL (0.6-1.3); GLUCOSE 97 mg/dL (74-106); POTASSIUM 3.2 mmol/L (3.5-5.1); SODIUM SERUM 141 mmol/L (136-145); UREA NITROGEN, BLOOD 22 mg/dL (7-18)
--- NOTE | 2017-09-13 06:44 | NUR ---
RN [facility] CLOSING NOTES, PATIENT IN BED SLEEPING BUT EASILY TO AROUSE, BREATHING EVEN AND UNLABORED NO S/S OF ANY PAIN OR DISCOMFORT NOTED, NO SOB, NSR ON THE TELE MONITOR, WITH OPTIMAL SATURATION LEVEL, PIV IN SON INTACT AND PATENT, ALL NEEDS MET, BED LOCKED AND IN LOWEST POSITION, DRY AND CLEAN, CALL LIGHT W/I REACH, WILL ENDORSE TO ONCOMING NURSE.
[2017-09-13 06:59] LABS: INR 1.07 (0.87-1.13)
[2017-09-13 07:07] LABS: CHOLESTEROL 125 mg/dL (<200); HDL CHOLESTEROL 60 mg/dL (40-60); LDL 62 mg/dL (0-99); TRIGLYCERIDES 35 mg/dL (30-150)
--- NOTE | 2017-09-13 07:12 | NUR ---
RN INITIAL NOTES: REC'D PT AWAKE ON BED, NOT IN ANY DISTRESS, A/O X 4, DENIES ANY PAIN/DISCOMFORT, [place] ON R EAR. ON NC/2LPM, NO SOB. ON TELEMONITOR, SR 70 BPM. HAS SON G20, SL, PATENT & INTACT, NO S/SX OF INFECTION/INFILTRATION NOTED. PROVIDED COMFORT & SAFETY MEASURES. BED KEPT LOW & IN LOCKED POS. CALL LIGHT PLACED W/IN REACH. WILL CONT TO MONITOR & ATTEND PT NEEDS.
[2017-09-13] MEDS: PANTOPRAZOLE 40 MG TABLET.DR PO SCH (08:20)
[2017-09-13] MEDS: DOCUSATE SODIUM 100 MG CAPSULE PO SCH (08:20)
[2017-09-13] MEDS: BLOOD SUGAR DIAGNOSTIC 1 EACH STRIP IN SCH ×4 (08:47→20:56)
[2017-09-13] MEDS ORDERED: ASPIRIN EC 325 MG TABLET.DR PO SCH (09:00)
--- NOTE | 2017-09-13 09:30 | NUR ---
RN NOTES: CLARIFIED W/ DR. POE RE: KEEP PERMISSIVE BP. PER MD, IF ITS CVA, SBP SHOULD BE >200 AND IF DX IS TIA THEN FOLLOW NORMAL BP PROTOCOL. BP 209/96, RECHECKED AFTER 30 MINS BP 185/95. APRESOLINE 20 MG IVP PRN ORDERED, GAVE 10 MG ONLY (JUST TO BE SURE BP WILL NOT DROP) & RECHECKED BP AFTER 30 MINS, BP 102/52. HALF (10 MG) OF THE APRESOLINE DISCARDED.
[2017-09-13] MEDS: POTASSIUM CHLORIDE 20 MEQ TAB.PRT.SR PO SCH ×2 (11:26→12:21)
--- NOTE | 2017-09-13 12:30 | NUR ---
RN NOTES: PT SEEN & EXAMINED BY LUNA DELANEY W/ ORDERS TO KEEP SBP >180'S.
--- NOTE | 2017-09-13 12:55 | NUR ---
RN NOTES: RHETT CARRASCO MADE AWARE RE: POSITIVE ORTHOSTATICS HYPOTENSION W/ ORDERS TO DC ALL HTN MEDICATIONS.
[2017-09-13] MEDS: CLOPIDOGREL BISULFATE 75 MG TABLET PO SCH (13:25)
--- NOTE | 2017-09-13 16:00 | NUR ---
RN NOTES: PT REFUSED PT EVAL AT THIS TIME.
[2017-09-13] MEDS ORDERED: MULT-594 PO (16:56)
--- NOTE | 2017-09-13 18:33 | NUR ---
RN CLOSING NOTES: NO ACUTE CHANGES NOTED W/IN SHIFT. PT TOLERATED ROOM AIR, NO SOB. ON TELEMONITOR, STILL SR. SON G20, SL, KEPT PATENT & INTACT, NO S/SX OF INFECTION/INFILTRATION NOTED. KEPT WELL RESTED. NEEDS ATTENDED. BED KEPT LOW & IN LOCKED POS. CALL LIGHT PLACED W/IN REACH. WILL ENDORSE TO PM RN FOR BRAXTON.
--- NOTE | 2017-09-13 19:15 | NUR ---
[facility] NOTES RECEIVED PT AWAKE ALERT OX3.NO NEURO DEFICIT,SPEECH CLEAR,CARRERA,EQUAL HAND GRASPS.
[2017-09-13] MEDS: SIMVASTATIN 40 MG TABLET PO SCH (21:04)
[2017-09-14] VITALS: BP 187/93
--- NOTE | 2017-09-14 | NUR ---
[facility]/NOTES NEURO STATUS UNCHANGED,NO NEURO DEFICITS.
[2017-09-14 04:00] VITALS: BP 144/62
[2017-09-14 06:25] LABS: CALCIUM, SERUM 8.5 mg/dL (8.5-10.1); CARBON DIOXIDE 28 mmol/L (21-32); CHLORIDE 108 mmol/L (98-107); CREATININE 1.5 mg/dL (0.6-1.3); GLUCOSE 99 mg/dL (74-106); POTASSIUM 3.2 mmol/L (3.5-5.1); SODIUM SERUM 142 mmol/L (136-145); UREA NITROGEN, BLOOD 20 mg/dL (7-18)
--- NOTE | 2017-09-14 07:12 | NUR ---
RN INITIAL NOTES: REC'D PT AWAKE ON BED, NOT IN ANY DISTRESS, A/O X 4, DENIES ANY PAIN/DISCOMFORT, [place] ON R EAR. ON ROOM AIR, NO SOB. ON TELEMONITOR, SR 75 BPM. HAS SON G20, SL, PATENT & INTACT, NO S/SX OF INFECTION/INFILTRATION NOTED. PROVIDED COMFORT & SAFETY MEASURES. BED KEPT LOW & IN LOCKED POS. CALL LIGHT PLACED W/IN REACH. WILL CONT TO MONITOR & ATTEND PT NEEDS. REMINDED RE: SAFETY PRECAUTIONS. PT AWARE OF HIS SURROUNDINGS. NO CONCERN AT THIS TIME.
--- NOTE | 2017-09-14 07:20 | NUR ---
[facility] NOTES CONDITION UNCHANGED.REPORT AND CARE OF PT GIVEN TO MOHIT OBRIEN.
[2017-09-14] MEDS: BLOOD SUGAR DIAGNOSTIC 1 EACH STRIP IN SCH ×4 (07:58→21:41)
[2017-09-14 08:00] VITALS: BP_SYST 136; BP_SYST 185; BP_DIAS 58; BP_DIAS 76; BP_DIAS 97
[2017-09-14] MEDS: CLOPIDOGREL BISULFATE 75 MG TABLET PO SCH (08:24)
[2017-09-14] MEDS: DOCUSATE SODIUM 100 MG CAPSULE PO SCH ×2 (08:24→17:47)
[2017-09-14] MEDS: PANTOPRAZOLE 40 MG TABLET.DR PO SCH (08:24)
[2017-09-14] MEDS: POTASSIUM CHLORIDE 20 MEQ TAB.PRT.SR PO SCH ×2 (11:46→12:00)
[2017-09-14 12:00] VITALS: BP_SYST 117; BP_SYST 149; BP_SYST 85; BP_DIAS 41; BP_DIAS 56; BP_DIAS 67
[2017-09-14] MEDS ORDERED: POTASSIUM CHLORIDE 20 MEQ TAB.PRT.SR PO ONE (13:30)
[2017-09-14] MEDS: FLUDROCORTISONE 0.1 MG TABLET PO SCH (14:02)
[2017-09-14 16:00] VITALS: BP_SYST 141; BP_SYST 175; BP_SYST 184; BP_DIAS 70; BP_DIAS 86; BP_DIAS 95
--- NOTE | 2017-09-14 18:34 | NUR ---
RN CLOSING NOTES: NO ACUTE CHANGES NOTED W/IN SHIFT. PT TOLERATED ROOM AIR, NO SOB. ON TELEMONITOR, STILL SR. SON G20, SL, KEPT PATENT & INTACT, NO S/SX OF INFECTION/INFILTRATION NOTED. KEPT WELL RESTED. NEEDS ATTENDED. BED KEPT LOW & IN LOCKED POS. CALL LIGHT PLACED W/IN REACH. WILL ENDORSE TO PM RN FOR BRAXTON. Addendum: 09/14/17 at 1837 by MOHIT MAGANA RN ADDENDUM: PT S/E BY RHETT CARDIAC CATH TECHNOLOGIST, FAMILY AT BEDSIDE DURING CARDIAC CATH TECHNOLOGIST ROUNDS. PT & OT DONE. PT TOLERATED THE THERAPY THOUGH ORTHOSTATIC HYPOTENSION NOTED. HEALTH TEACHING DONE ABOUT SAFETY ISSUES/ AWARENESS W/ VERBALIZATION OF UNDERSTANDING.
--- NOTE | 2017-09-14 19:00 | NUR ---
RN NOTES received patient awake,alert,converses,coherent and appropriate,not in any distress.Hard of hearing (has hearing aid in left ear).Moves all extremitiesdenies any pain.Comfort care done,needs attended.Bed alarm on,fall precaution observed.
[2017-09-14 20:00] VITALS: BP 184/92
[2017-09-14] MEDS: SIMVASTATIN 40 MG TABLET PO SCH (21:41)
--- NOTE | 2017-09-14 22:00 | NUR ---
RN NOTES assisted to the bathroom,patient still with unsteady gait when walking and still weak.
[2017-09-15] VITALS: BP_SYST 142; BP_SYST 192; BP_SYST 73; BP_DIAS 40; BP_DIAS 74; BP_DIAS 91
--- NOTE | 2017-09-15 00:05 | NUR ---
RN NOTES BP CHECKED lying ,sitting upright and standing and noted big differences. 192/91 lying flat,142/74 sitting upright and 73/40 standing.
[2017-09-15 04:00] VITALS: BP 171/89
--- NOTE | 2017-09-15 04:00 | NUR ---
RN NOTES Stable,awake,.alert,no dizzines but still with gait disturbance when walking,but with good balance.Comfort care done,needs attended.Still assist patient to the bathroom for patient safety,fall prevention/precaution observed.
[2017-09-15 06:42] LABS: CALCIUM, SERUM 8.1 mg/dL (8.5-10.1); CARBON DIOXIDE 26 mmol/L (21-32); CHLORIDE 109 mmol/L (98-107); CREATININE 1.4 mg/dL (0.6-1.3); GLUCOSE 96 mg/dL (74-106); POTASSIUM 3.2 mmol/L (3.5-5.1); SODIUM SERUM 142 mmol/L (136-145); UREA NITROGEN, BLOOD 23 mg/dL (7-18)
--- NOTE | 2017-09-15 07:00 | NUR ---
RN NOTES STABLE,DENIES PAIN,DENIES DIZZINESS.REPORT GIVEN TO JASWANT GODFREY RN
--- NOTE | 2017-09-15 07:14 | NUR ---
[facility] RN NOTES RECEIVED PATIENT AOX3 , DENIES ANY DIZZINESS , SOB AND DISCOMFORT AT THIS TIME , SPO2 OF 100% VIA RA . SR 85 ON TELE MONITOR , IV OF SON # 20 PATENT AND INTACT SL , ALL NEEDS ATTENDED , BED ON LOW AND LOCKED POSITION , SIDE RAILS X2 , CALL LIGHT WITHIN REACH , HOB @ 35 , BED ALARM MADE AUDIBLE , WILL CONTINUE TO MONITOR
[2017-09-15] MEDS: BLOOD SUGAR DIAGNOSTIC 1 EACH STRIP IN SCH ×2 (07:33→11:06)
[2017-09-15] MEDS: PANTOPRAZOLE 40 MG TABLET.DR PO SCH (07:33)
[2017-09-15 08:00] VITALS: BP_SYST 106; BP_SYST 159; BP_SYST 74; BP_DIAS 42; BP_DIAS 54; BP_DIAS 70
[2017-09-15] MEDS: FLUDROCORTISONE 0.1 MG TABLET PO SCH (08:10)
[2017-09-15] MEDS: CLOPIDOGREL BISULFATE 75 MG TABLET PO SCH (08:10)
[2017-09-15] MEDS: DOCUSATE SODIUM 100 MG CAPSULE PO SCH (08:10)
[2017-09-15] MEDS: POTASSIUM CHLORIDE 20 MEQ TAB.PRT.SR PO SCH ×2 (10:54→11:01)
[2017-09-15] MEDS ORDERED: IV NS 0.9% 500 ML IV ONE (11:30)
[2017-09-15] MEDS ORDERED: FLUDROCORTISONE 0.1 MG TABLET PO SCH (11:30)
--- NOTE | 2017-09-15 11:46 | NUR ---
[facility] RN NOTES SEEN AND EVALUATED BY RHETT DOHERTY , DISCUSSED LABS , ORTHOSTATIC BP , PT IS VERBALIZING THAT HE WANTS TO GO HOME AND COMPLAINING THAT HE IS CONSTIPATED , LAS BM WAS 2-3 DAYS AGO , PER MD START PT ON MOM PRN , ORDERS CARRIED OUT .
--- NOTE | 2017-09-15 11:49 | NUR ---
[facility] RN NOTES DISCUSSED WITH DESTINEY DOHERTY THAT BS IS WNL , NO HX OF DM , PER MD OG ACCUCHECK , ORDER CARRIED OUT
[2017-09-15 12:00] VITALS: BP_SYST 127; BP_SYST 159; BP_SYST 166; BP_DIAS 64; BP_DIAS 75; BP_DIAS 93
[2017-09-15] MEDS ORDERED: MAGNESIUM HYDROXIDE 30 ML UDC PO PRN (12:00)
[2017-09-15] MEDS ORDERED: FLUD0.1T3 PO (14:15)
--- NOTE | 2017-09-15 15:21 | NUR ---
[facility] RN NOTES PATIENT STABLE UPON DISCHARGE , DENIES ANY DIZZINESS , SOB AND DISCOMFORT AT THIS TIME , SPO2 OF 100% VIA RA . SR 80 ON TELE MONITOR , IV OF SON # 20 REMOVED , APPLIED PRESSURE NO BLEEDING NOTED ,SKIN ASSESSMENT DONE , TOOK A PICTURE A PLACED IN THE CHART , NO NEW WOUNDS NOTED , VSS , DISCHARGE ,AND MEDICATION INSTRUCTIONS GIVEN , PT VERBALIZED UNDERSTANDING , WHEELED PT TO THE LOBBY FOR DISCHARGE ,
== END 2017-09-15 15:26 | disposition home health service (06) | DRG 64 ==
LOC: ER 16:54 → TELE1 09-13 00:41 → TELE-TD 09-13 02:09
PROVIDERS: ADMIT Internal Medicine; ATTEND Internal Medicine
DX: I63.9 Cerebral infarction, unspecified (principal); N17.0 Acute kidney failure with tubular necrosis; E44.0 Moderate protein-calorie malnutrition; E87.1 Hypo-osmolality and hyponatremia; I13.0 Hypertensive heart and chronic kidney disease with heart failure and stage 1 through stage 4 chronic kidney disease, or unspecified chronic kidney disease; E87.6 Hypokalemia; I95.1 Orthostatic hypotension; D64.9 Anemia, unspecified; F41.9 Anxiety disorder, unspecified; G47.00 Insomnia, unspecified; N18.9 Chronic kidney disease, unspecified; Z86.73 Personal history of transient ischemic attack (TIA), and cerebral infarction without residual deficits; Z87.442 Personal history of urinary calculi; Z87.440 Personal history of urinary (tract) infections; Z87.891 Personal history of nicotine dependence; G90.8 Other disorders of autonomic nervous system; E88.09 Other disorders of plasma-protein metabolism, not elsewhere classified; J44.9 Chronic obstructive pulmonary disease, unspecified; I50.9 Heart failure, unspecified; E86.1 Hypovolemia
CPT/HCPCS: 36415; 70450-TC; 71045-TC; 80048-TC; 80061-TC; 80076-TC; 81000-TC; 82962-TC; 84484-TC; 85025-TC; 85730-TC; 87081-TC; 87086-TC; 92611-TC; 93307-TC; 93880-TC; 97530-TC; A4606; J0360; J3475; J3490; J7040; Z7610